=== PATIENT | male | born 1995 | race Caucasian/White ===

== ENCOUNTER 2020-03-17 22:49 | Emergency (ER) | payer OTHER ==
[~2020-03-17] VITALS: Ht 175.3 cm; Wt 97.7 kg
[2020-03-17 22:58] VITALS: BP 141/81; PULSE 100; TEMP 97.2
== END 2020-03-18 00:01 | disposition home or self-care (01) ==
LOC: COL.ER 22:49
DX: T16.2XXA Foreign body in left ear, initial encounter (principal); X58.XXXA Exposure to other specified factors, initial encounter

== ENCOUNTER → 2022-07-04 | Outpatient (CLI) | payer SELFPAY | LOC: COL.RAD 10:57 | DX: D49.2 Neoplasm of unspecified behavior of bone, soft tissue, and skin (principal) ==